=== PATIENT | male | born 1955 | race Caucasian/White ===

== ENCOUNTER 2023-08-14 07:19 | Outpatient (CLI) | payer MEDICARE, SELFPAY ==
--- NOTE | ~2023-08-14 | NM_ITS ---
EXAMINATION: NM hepatobiliary wo pharm DATE: 08/14/2023 10:12 INDICATION: Right upper quadrant abdominal pain. COMPARISON: None. TECHNIQUE: 5.2 mCi Tc-99m mebrofenin (Choletec) was administered intravenously. Scintigraphic images of the abdomen were obtained for one hour. Then, the patient drank 8 oz Ensure, and imaging was cont inued for 60 minutes. FINDINGS: There is normal clearance of radiotracer from the blood pool. There is homogeneous tracer u ptake by the liver. Activity progresses to the bowel and gallbladder. Gallbladder ejection fraction (GBEF) was 18%. Note that with this technique, normal GBEF >= 33%. IMPRESSION: 1. Low gallbladder ejection fraction, consistent with gallbladder dysfunction and/or chronic cholecy stitis. Reviewed, dictated and finalized at location A. IMPRESSION: 1. Low gallbladder ejection fraction, consistent with gallbladder dysfunction and/or chronic cholecystitis.
== END 2023-08-14 07:20 | disposition home or self-care (01) ==
DX: R10.11 Right upper quadrant pain (principal)
CPT/HCPCS: 78226; A9537

== ENCOUNTER 2023-08-29 09:00 | Outpatient (CLI) | payer MEDICARE, SELFPAY ==
--- NOTE | 2023-08-29 09:15 | ECG_ITS ---
Measurements Intervals [place] Rate: 62 P: -14 TN: 171 QRS: 44 QRSD: 101 T: 38 QT: 421 QTc: 428 Interpretive Statements SINUS RHYTHM INCOMPLETE RIGHT BUNDLE BRANCH BLOCK BASELINE ARTIFACT- I, II, III, AVR, AVL BORDERLINE ECG NO PREVIOUS ECG AVAILABLE FOR COMPARISON Electronically Signed On 08-29-2023 9:43:39 CDT by José Miguel Pan D.O.
[2023-08-29 09:44] LABS: Alanine Aminotransferase 14 U/L (6-50); Albumin Level 4.1 g/dL (3.5-5.1); Alkaline Phosphatase 70 U/L (38-126); Amylase 64 U/L (30-110); Aspartate Amino Transferase 25 U/L (17-59); Bilirubin,Total 0.8 mg/dL (0.2-1.3); Lipase 109 U/L (23-300)
== END 2023-08-29 09:01 | disposition home or self-care (01) ==
LOC: ANHSURGERY 09:05
PROVIDERS: Visit Provider Surgery
DX: Z01.812 Encounter for preprocedural laboratory examination (principal); Z01.810 Encounter for preprocedural cardiovascular examination; K81.1 Chronic cholecystitis; E78.00 Pure hypercholesterolemia, unspecified; I45.10 Unspecified right bundle-branch block
CPT/HCPCS: 36415; 80076; 82150; 83690; 86850; 86900; 86901; 93005

== ENCOUNTER 2023-09-05 03:22 | Day surgery (SDC) | payer MEDICARE, SELFPAY ==
[2023-08-27 12:26] VITALS: BMI 34.0
--- NOTE | 2023-08-27 12:50 | PC.NURSE ---
Addendum entered by Flora York RN 08/27/23 13:02: HIBICLENS SHOWER MORNING OF SURGERY. PT RELAYS UNDERSTANDING. Original Note: Report to the Outpatient Waiting Room, entrance under the green pavilion located off [facility], at time __10:00AM on date __09/05/23 . Planned Procedure Time: __12:00PM . Time changes happen often and if your time is changed the preop area will call you the afternoon before. - You and your visitor will be asked to self-screen and do not enter if you have any COVID symptoms. - A mask is optional within the hospital at this time. Patients may have clear liquids (water, carbonated beverages, clear teas, apple juice) until 3 hours prior to surgery with a maximum of 20 ounces. - No food from midnight until time of surgery. Take the following medications with a SIP of water the morning of surgery: __NONE DO NOT STOP ANY OF YOUR OTHER PRESCRIPTION MEDICATIONS PRIOR TO SURGERY ?EXCEPT THE FOLLOWING Medications to discontinue per physician ___HOLD ALL VITAMINS/SUPPLEMENTS 3 DAYS PRE-OP PER ANESTHESIA Date to take last dose___09/01/23 Please no make-up, nail citizen of [place], hairspray, perfume, deodorant, or body powder the day of surgery. No jewelry (including any body piercings) or valuables the day of surgery, leave them at home. Please take a shower or bath the night before, or the morning of, surgery with an antibacterial soap. Wear comfortable, loose fitting clothing. Children are encouraged to wear pajamas. - Jewelry must be removed prior to entering the operating room. Rings and piercings that are not removed may be cut off. - The hospital will not accept responsibility for valuables. - Please leave all valuables, including medications, at home the day of surgery. If you are going home after surgery, a licensed snaker tractor driver must drive you home. - NO public transportation without another adult if you receive anesthesia. - We recommend that an adult stay with you for 24 hours following discharge. - We also recommend that you do not drive, make important decision, drink alcoholic beverages, or take any drugs that were not prescribed by your health care provider for at least 24 hours after your discharge time. Follow any additional instructions given to you from your surgeon. If you or anyone in your household have experienced Covid symptoms in the past week, please notify your surgeon or the nurse liaison at the phone number below for possible testing. Telephone instructions given to __PATIENT and asked if any additional questions and then verbalized understanding. Patient advised to call surgeon office or pre surgery nurse liaison [phone] if any additional questions.
[2023-09-05] VITALS (9 sets, daily range): BP systolic 105–144; BP diastolic 56–79; PULSE 64–71; RESP 14–18; TEMP 36.1–36.3; O2SAT 92–99
[2023-09-05] MEDS: ACETAMINOPHEN 500 MG TABLET 1000 MG PO (10:45)
[2023-09-05] MEDS: KETOROLAC 15 MG/ML VIAL (*BKC) IV PUSH (10:45)
[2023-09-05] MEDS: LACTATED RINGERS 1,000 ML 30 ML IV CONT (10:45)
--- NOTE | 2023-09-05 11:40 | SUR.PREOP ---
1130 PT INFORMED OF SURGERY TIME DELAY, DENIES NEEDS
--- NOTE | 2023-09-05 12:06 | P.PNAN_ITS ---
Anes - Initial Pre Proc Eval Procedure: Operation Date: 09/05/23 12:00 Proposed Procedures p Laparoscopic Cholecystectomy - Greg Duff MD Date/Time: 09/05/23 12:06 Surgeon: Greg Duff MD Pre Op Diagnosis: chronic cholecystitis Patient Data Age: 68 Gender: M Height: 1.85 m Weight: 114.76 kg Last Vital Signs Temp 36.3 C L 09/05/23 10:45 Pulse 70 09/05/23 10:45 Resp 14 09/05/23 10:45 BP 144/79 H 09/05/23 10:45 Pulse Ox 98 09/05/23 10:45 O2 Del Method Room Air 09/05/23 10:45 Allergies Allergy/AdvReac Type Severity Reaction Status Date / Time No Known Allergies Allergy Verified 09/05/23 10:50 Home Medications Medication Instructions Recorded Confirmed Type aspirin 325 mg capsule 325 mg PO DAILY 08/26/23 08/27/23 History simvastatin 20 mg tablet 20 mg PO DAILY 08/26/23 08/27/23 History Beet 1 tbsp PO DAILY 08/27/23 08/27/23 History psyllium husk 3.4 gram/5.4 gram 1 tbsp PO DAILY 08/27/23 08/27/23 History oral powder (Metamucil) Patient hx anesthesia problems: none Family hx anesthesia problems: none Results Review: All pre-operative results and documents have been reviewed as part of the pre- operative evaluation. [facility] Past Medical History Medical History (Updated 09/05/23 @ 12:07 by Malick Ragsdale MD) History of atrial fibrillation Hyperlipidemia Obesity Surgical History Surgical History Hx of carpal tunnel repair Family History Family History Other Heart disease Social History Social History Smoking packs per day: 0.5 Smoking cigarettes per day: 10.0 Years smoked: 40 Smoking pack-years: 20.00 Smoking status: Former smoker Tobacco type: cigarettes and cigars Smoking end date: 06/01/12 Alcohol intake: current Drinks per week: 15 Alcohol use details: socially Substance use: never Living arrangements: with family Additional living arrangements comments: Occupation/Education: retired Spiritual care concerns: No Anes - Eval Final PreProcedure Day of Procedure 09/05/23 12:06 Patient weight: obese Heart: regular rate and rhythm Lungs: clear to auscultation Airway: Mallampati scale class II Neurological: alert and oriented Last oral intake: >/= 8 hours ASA classification: III Emergent: no Anesthetic plan: proceed Anesthesia type and monitoring: general ETT and standard monitoring Results Review: All pre-operative results and documents have been reviewed as part of the pre-operative evaluation. Informed Consent: The patient's anesthetic plan and its attendant risks and benefits were discussed with the patient/family/POA. Questions were solicited and answers provided to the satisfaction of the patient/family/POA.
--- NOTE | 2023-09-05 12:46 | WPDHPUPDATE1 ---
History and Physical Update Update Date/Time: 09/05/23 12:46 History and Physical has been reviewed, including an updated exam of the patient. There are NO changes in the patient's condition. Risks, benefits, and alternatives have been discussed and questions answered. Patient agrees to proceed with procedure.
[2023-09-05] MEDS: ceFAZolin 2 GM/D5W 50 ML 2 GM/50 ML BAG IVPB (12:52)
[2023-09-05] MEDS: BUPIVACAINE/EPINEPHRINE 0.5% 50 ML VIAL 30 ML INFILTRATE (13:18)
--- NOTE | 2023-09-05 14:27 | W.PM.PROC2 ---
Procedure Note - Detailed Date of Procedure 09/05/23 Pre-op Diagnosis chronic cholecystitis Post-op Diagnosis Same Procedure Performed Laparoscopic cholecystectomy Surgeon Greg Duff MD [employer] Dylon MARNI Anesthesia General and Local Indications Patient is a 68-year-old man who has had episodes of postprandial right upper quadrant pain. He particularly notices these after a fatty meal. He had a gallbladder ultrasound sound at an outside facility which showed sludge. He also had a HIDA scan which showed a low gallbladder ejection fraction. He is taken to surgery now for laparoscopic cholecystectomy for chronic cholecystitis Findings Patient did not have any stones that I could see. He had very thickened dark bile. His gallbladder was very chronically inflamed. The wall was thickened. There was a lot of obscuring of the tissue planes between the gallbladder and the liver. There was no biliary ductal dilatation. He appeared to have a mild degree of fatty liver change. Gallbladder was hypervascular. No other significant findings were noted. Description of Procedure Patient was taken to surgery and induced into general anesthesia. The abdomen is prepped and draped. The varies needle was introduced at an epigastric site. Insufflation was carried out. Trocars were then placed in the usual fashion using applied Medical optical trocars and direct visualization. The gallbladder was found easily. I decompressed the gallbladder with a laparoscopic aspirator. Dark thick bile came out that appeared to have some old blood in it. The cholecystotomy was closed with a Vicryl endoloop. The gallbladder was then freed from adhesions and retracted anterosuperiorly. The entire gallbladder was very thickened at the wall but no stones were evident. With traction on the infundibulum of the gallbladder, dissection was carried out in the cholecystohepatic triangle. This tissue was edematous and chronically inflamed. It was hypervascular. I dissected out the cystic artery and cystic duct. There were numerous small arterial vessels in the area as well. These were cauterized and divided. I dissected the gallbladder free from the liver at its lower 3rd. Critical view was achieved. I then securely clipped the cystic artery and cystic duct. Each of these were divided. There were some additional small branches of the cystic artery which bled during the dissection. These were controlled with cautery but accounted for nearly all the blood loss of 50 cc. We then continued the dissection of the gallbladder from the liver. The peritoneum and gallbladder wall were very thickened. There was a lot of chronic inflammation. This was tedious slow dissection but eventually the gallbladder was dissected and freed from the liver. We placed the gallbladder in it an Endo-Catch bag. It was then retrieved through the 10 11 epigastric trocar site. I replaced the epigastric trocar and reviewed the gallbladder fossa and right upper quadrant. Liver was again retracted and cautery was used on the gallbladder fossa to achieve hemostasis. I then thoroughly irrigated and suctioned the right upper quadrant. I did this repeatedly. There was no evidence of bleeding or bile leakage. Clips were secure on the cystic duct and cystic artery. I then evacuated CO2 and removed the trocar sleeves. The fascia at the epigastric trocar site was closed with a [id number] mattress suture of 0 Vicryl. All skin wounds were closed with subcuticular 4-0 Monocryl skin suture. The wounds were dressed with Exofin surgical adhesive. Patient was then awakened and taken to recovery in good condition. Sponge needle counts were correct x2. Estimated Blood Loss -50 Drains No Packing No Pathology Yes (Gallbladder) Complications No immediate complications Condition Stable Disposition PACU [facility] Billing Surgery - Charge Forward: Surgery Billing (Laparoscopic cholecystectomy)
== END 2023-09-05 16:25 | disposition home or self-care (01) ==
PROVIDERS: Visit Provider Surgery
PROC: 0FT44ZZ Resection of Gallbladder, Percutaneous Endoscopic Approach (ICD-10-PCS; CPT 47562; principal; 2023-09-05 12:00)
DX: K80.10 Calculus of gallbladder with chronic cholecystitis without obstruction (principal); E78.5 Hyperlipidemia, unspecified; Z79.82 Long term (current) use of aspirin; Z87.891 Personal history of nicotine dependence; E66.9 Obesity, unspecified; Z68.33 Body mass index [BMI] 33.0-33.9, adult
CPT/HCPCS: 47562; 88304; A9270; C1713; J0690; J1100; J1170; J1885; J2250; J2405; J2704; J3010; J7120

== ENCOUNTER 2024-04-16 08:28 | Outpatient (CLI) | payer MEDICARE, SELFPAY ==
--- NOTE | ~2024-04-16 | CT_ITS ---
CT Scan of the Chest without Contrast: Clinical Indication: Lung cancer screening Technique: Contiguous sections were acquired throughout the chest without intravenous contrast. Dose reduction technique was used on this scan by utilizing automated exposure control and iterative recon struction technique. The dose-length product (DLP) was 288.57 mGy-cm. Findings: There is no evidence of any significant mediastinal, hilar or axillary lymphadenopathy. The mediastin al soft tissues appear normal. There is no evidence of pleural or pericardial effusion. Several calcified granulomas are present. No other pulmonary abnormality seen. Images through the upper abdomen reveal no abnormalities. Impression: Lung RADS 2: Benign appearance. 12 month follow-up screening CT advised. Reviewed, dictated and finalized at location . Impression: Lung RADS 2: Benign appearance. 12 month follow-up screening CT advised.
--- NOTE | ~2024-04-16 | US_ITS ---
EXAMINATION: US aorta [facility] DATE: 04/16/2024 08:51 INDICATION: Encounter for abdominal aortic aneurysm screening TECHNIQUE: Grayscale, color Doppler, and pulsed Doppler images of the aorta and common iliac arteries were obtained. COMPARISON: None. FINDINGS: The proximal aorta measures 2.6 cm AP. The mid aorta measures 2.5 cm. The distal aorta measures 2.3 c m. The right common iliac artery measures 1.2 cm. The left common iliac artery measures 1.2 cm. IMPRESSION: 1. Normal caliber abdominal aorta. Reviewed, dictated and finalized at location A.
== END 2024-04-16 08:29 ==
LOC: GOSHIMG 08:29
DX: Z12.2 Encounter for screening for malignant neoplasm of respiratory organs (principal); Z87.891 Personal history of nicotine dependence; Z13.6 Encounter for screening for cardiovascular disorders
CPT/HCPCS: 71271; 76706

== ENCOUNTER 2024-05-25 07:36 | Day surgery (SDC) | payer MEDICARE, SELFPAY ==
[2024-04-29 11:14] VITALS: BMI 36.4
[2024-05-15 09:24] VITALS: BMI 36.3
--- NOTE | 2024-05-25 06:51 | P.PNAN_ITS ---
Anes - Initial Pre Proc Eval Procedure: Operation Date: 05/25/24 09:30 Proposed Procedures p Screening Colonoscopy - Jayjay Knutson DO Date/Time: 05/25/24 06:51 Surgeon: Jayjay Knutson DO Pre Op Diagnosis: Positive Cologuard Patient Data Age: 68 Gender: M Height: 1.83 m Weight: 121.5 kg Allergies Allergy/AdvReac Type Severity Reaction Status Date / Time No Known Allergies Allergy Verified 05/25/24 08:18 Home Medications Medication Instructions Recorded Confirmed Type psyllium husk 3.4 gram/5.4 gram 1 tbsp PO DAILY 08/27/23 05/25/24 History oral powder (Metamucil) Lactobacillus 1 cap PO DAILY 05/15/24 05/25/24 History acidophilus-Bifidobac.animalis 2.5 billion cell capsule (Daily Probiotic) cholecalciferol (vitamin D3) 25 25 mcg PO DAILY 05/15/24 05/25/24 History mcg (1,000 unit) tablet (Vitamin D3) omeprazole 20 mg capsule,delayed 20 mg PO DAILY 05/15/24 05/25/24 History release simvastatin 40 mg tablet 40 mg PO HS 05/15/24 05/25/24 History Patient hx anesthesia problems: none Family hx anesthesia problems: none Results Review: All pre-operative results and documents have been reviewed as part of the pre- operative evaluation. [facility] Past Medical History Medical History (Updated 05/25/24 @ 10:09 by Jayjay Knutson DO) History of atrial fibrillation Hyperlipidemia Obesity Surgical History Surgical History (Updated 05/25/24 @ 10:11 by Reece Sahu DO) H/O cardiac radiofrequency ablation History of laparoscopic cholecystectomy on 09/05/23 [place] Hx of carpal tunnel repair Family History Family History Other Heart disease Social History Social History (Updated 05/25/24 @ 10:11 by Reece Sahu DO) Smoking packs per day: 0.5 Smoking cigarettes per day: 10.0 Years smoked: 40 Smoking pack-years: 20.00 Smoking status: Former smoker Tobacco type: cigarettes Smoking end date: 06/01/12 Alcohol intake: current Alcohol use details: 4-5 beers/day Substance use: never Substance use type: does not use Living arrangements: with family Additional living arrangements comments: Occupation/Education: retired Spiritual care concerns: No Anes - Eval Final PreProcedure Day of Procedure 05/25/24 06:51 Patient weight: obese Heart: regular rate and rhythm Lungs: clear to auscultation Airway: Mallampati scale class II Neurological: alert and oriented Last oral intake: >/= 8 hours ASA classification: III Emergent: no Anesthetic plan: proceed Anesthesia type and monitoring: general GIVS and standard monitoring Results Review: All pre-operative results and documents have been reviewed as part of the pre- operative evaluation. Informed Consent: The patient's anesthetic plan and its attendant risks and benefits were discussed with the patient/family/POA. Questions were solicited and answers provided to the satisfaction of the patient/family/POA.
[2024-05-25 08:29] VITALS: BMI 34.4
[2024-05-25 08:30] VITALS: BP 144/87; PULSE 72; RESP 16; TEMP 36.4; O2SAT 97
[2024-05-25] MEDS: LACTATED RINGERS 1,000 ML 150 ML IV CONT (08:42)
--- NOTE | 2024-05-25 10:08 | PM.IMHP ---
H&P: HPI History of Present Illness Date/Time: 05/25/24 10:08 Chief Complaint: positive Cologuard Narrative: this is a 68-year-old man who presents for colonoscopy. It has been greater than 10 years since his last colonoscopy. He recently had a Cologuard test that was positive. He denies any family history of colon cancer. Denies any hematochezia or melena. Review of Systems Review of Systems: All systems reviewed & are unremarkable except as noted in HPI and below Constitutional: Constitutional: Denies chills, Denies fever(s), Denies headache(s) and Denies weight loss Eyes: Eyes: Denies change in vision ENT: Denies dizziness, Denies headache(s), Denies neck mass and Denies throat swelling Cardiovascular: Cardiovascular: Denies chest pain, Denies lightheadedness and Denies dyspnea Respiratory: Respiratory: Denies cough, Denies dyspnea and Denies wheezing Gastrointestinal: Gastrointestinal: Denies abdominal pain, Denies change in bowel habits, Denies nausea and Denies vomiting Genitourinary: Genitourinary: Denies hematuria and Denies dysuria Musculoskeletal: Musculoskeletal: Reports as per HPI Integumentary/Breasts: Skin/Breast: Reports as per HPI Neurologic: Denies dizziness and Denies headache(s) Allergic/Immunologic: Allergic/Immunologic: Denies throat swelling and Denies wheezing [facility] Past Medical History Medical History (Updated 05/25/24 @ 10:09 by Jayjay Knutson DO) History of atrial fibrillation Hyperlipidemia Obesity Surgical History Surgical History History of laparoscopic cholecystectomy on 09/05/23 [place] Hx of carpal tunnel repair Family History Family History Other Heart disease Social History Social History Smoking packs per day: 0.5 Smoking cigarettes per day: 10.0 Years smoked: 40 Smoking pack-years: 20.00 Smoking status: Former smoker Tobacco type: cigarettes Smoking end date: 06/01/12 Alcohol intake: current Drinks per week: 6 Alcohol use details: beer Substance use: never Substance use type: does not use Living arrangements: with family Additional living arrangements comments: Occupation/Education: retired Spiritual care concerns: No Meds Home Medications and Allergies Home Medications Medication Instructions Recorded Confirmed Type psyllium husk 3.4 gram/5.4 gram 1 tbsp PO DAILY 08/27/23 05/25/24 History oral powder (Metamucil) Lactobacillus 1 cap PO DAILY 05/15/24 05/25/24 History acidophilus-Bifidobac.animalis 2.5 billion cell capsule (Daily Probiotic) cholecalciferol (vitamin D3) 25 25 mcg PO DAILY 05/15/24 05/25/24 History mcg (1,000 unit) tablet (Vitamin D3) omeprazole 20 mg capsule,delayed 20 mg PO DAILY 05/15/24 05/25/24 History release simvastatin 40 mg tablet 40 mg PO HS 05/15/24 05/25/24 History Allergies Allergy/AdvReac Type Severity Reaction Status Date / Time No Known Allergies Allergy Verified 05/25/24 08:18 Vital Signs Vital Signs - 24 hr 05/25/24 08:30 Temperature 36.4 C L Pulse Rate 72 Respiratory Rate 16 Blood Pressure 144/87 H Pulse Oximetry 97 Oxygen Delivery Room Air Exam Const: General: no acute distress and alert Orientation/consciousness: patient oriented x3 HENMT: Head: normocephalic and atraumatic Ears: hearing grossly normal bilaterally Face/Nose/Sinus: Normal nares present Mouth: Yes Normal oral and palatal mucosa present Eyes: Periorbital: periorbital findings normal Sclera: sclerae normal EOM: EOMs intact bilaterally Neck: Neck: normal visual inspection, no lymphadenopathy and trachea midline Chest: Chest palpation & inspection: normal inspection of the chest Resp: Effort & Inspection: normal respiratory effort Auscultation: clear to auscultation bilateral
[2024-05-25 10:34] VITALS: BP 118/54; PULSE 59; RESP 16; O2SAT 97
--- NOTE | 2024-05-25 10:43 | WPDANESPN ---
Anes - Prog Note Post-Op Date/Time: 05/25/24 10:43 Cardiovascular status: normal Respiratory status: normal Airway patency: baseline Mental status: baseline Post-Op hydration status: normal Vital Signs: Last Vital Signs Temp 36.4 C L 05/25/24 08:30 Pulse 59 L 05/25/24 10:34 Resp 16 05/25/24 10:34 BP 118/54 L 05/25/24 10:34 Pulse Ox 97 05/25/24 10:34 O2 Del Method Room Air 05/25/24 10:34 Pain Score (VAS): 0 I/O: Intake & Output 05/24/24 05/25/24 05/25/24 23:59 07:59 15:59 Intake Total 500 Balance 500 Post-procedural complaints: none Patient Feedback: Patient satisfied with anesthetic care. Other Findings: Patient vital signs back to baseline. Patient denies nausea and vomiting. Patient's pain under control. Patient OK for discharge.
[2024-05-25 10:44] VITALS: BP 106/84; PULSE 59; RESP 16; O2SAT 99
[2024-05-25 10:54] VITALS: BP 122/73; PULSE 60; RESP 18; O2SAT 100
== END 2024-05-25 11:01 | disposition home or self-care (01) ==
PROVIDERS: Visit Provider Surgery
PROC: 0DJD8ZZ Inspection of Lower Intestinal Tract, Via Natural or Artificial Opening Endoscopic (ICD-10-PCS; CPT 45378; principal; 2024-05-25 09:30)
DX: R19.5 Other fecal abnormalities (principal); K57.30 Diverticulosis of large intestine without perforation or abscess without bleeding; K64.8 Other hemorrhoids
CPT/HCPCS: 45378